=== PATIENT | female | born 1995 | race Caucasian/White ===

== ENCOUNTER 2017-07-16 08:20 | Observation (INO) | payer OTHER ==
[~2017-07-16] VITALS: Ht 165.1 cm; Wt 92.1 kg
[2017-07-16] MEDS ORDERED: ACETAMINOPHEN EXTRA STRENGTH 500 MG TAB PO PRN (09:25)
[2017-07-16] MEDS ORDERED: ACETAMINOPHEN EXTRA STRENGTH 500 MG TAB ONE (09:36)
[2017-07-16 09:40] VITALS: BP 127/84
[2017-07-16] MEDS ORDERED: cefTRIAXone 1,000 MG in LIDOCAINE MPF 1% - **ER/OR** 2.1 ML IM SCH (10:00)
[2017-07-16] MEDS ORDERED: OMEP20TC12 PO (10:08)
[2017-07-16] MEDS ORDERED: PREN-380 PO (10:08)
== END 2017-07-16 11:15 | disposition home or self-care (01) ==
LOC: MLD 08:20
PROVIDERS: ADMIT Obstetrics & Gynecology; ATTEND Obstetrics & Gynecology
DX: O26.892 Other specified pregnancy related conditions, second trimester (principal); R10.32 Left lower quadrant pain; Z3A.21 21 weeks gestation of pregnancy
CPT/HCPCS: 76805; 81000; 96372; G0378; J0696; J2001; Q0092